=== PATIENT | male | born 1970 | race Caucasian/White ===

== ENCOUNTER 2017-06-03 11:54 | Emergency (ER) | payer SELFPAY ==
[~2017-06-03] VITALS: Ht 182.9 cm; Wt 130.0 kg
[2017-06-03 12:12] VITALS: BP 143/67; PULSE 68; RESP 19; TEMP 98.4; O2SAT 98
--- NOTE | 2017-06-03 13:39 | RADRPT ---
EXAM DATE/TIME: 06/03/2017 13:36 [place] COMPARISON: No previous studies available for comparison. INDICATIONS : Left leg pain. MEDICAL HISTORY : None. SURGICAL HISTORY : None. ENCOUNTER: Initial ACUITY: 1 day PAIN SCORE: 7/10 LOCATION: Left leg. TECHNIQUE: Venous ultrasound of the leg was performed from the inguinal ligament to the proximal calf. Real-georgina e, color Doppler and spectral tracing, compression and augmentation techniques were used. FINDINGS: There is normal compressibility of the deep venous system from the inguinal region to the proximal ca lf. No echogenic clot is seen in the lumen of the common femoral, femoral, popliteal, and posterior tibial veins. There is a normal response of the venous system to proximal and distal augmentation an d respiration. There is some thrombosis in a few varicosities in the subcutaneous soft tissues of the left proximal calf. CONCLUSION: 1. No evidence of DVT. 2. There are some varicosities in the subcutaneous soft tissues of the left proximal calf with thromb osis. Mitch Montiel MD on June 03, 2017 at 13:36 Board Certified Radiologist. This report was verified electronically.
[2017-06-03] MEDS ORDERED: CEPH-460 PO (14:54)
[2017-06-03] MEDS ORDERED: IBUP1TAB7 PO (14:54)
--- NOTE | 2017-06-03 14:56 | PD ---
Physical Exam Date Seen by Provider: Jun 03, 2017 Narrative This patient presents complaining with left calf tenderness. Onset has been several days ago. Data Data Last Documented VS Vital Signs Date Time Temp Pulse Resp B/P (MAP) Pulse Ox O2 Delivery O2 Flow Rate FiO2 06/03/17 12:12 98.4 68 19 143/67 (92) 98 Orders Orders Us Leg Venous Doppler (06/03/17 ) MDM Supervised Visit with CHELITA: Yes Narrative Course I, Dr. Plummer, have reviewed the advance practice practitioner's documentation and am in agreement, met with the patient face to face, made the diagnosis, and the medical decision making was done by me. *My assessment and Findings: Patient ambulates to the room. He does not appear to be in any distress. Last Impressions Lower Extremity Ultrasound 06/03/17 0000 Signed Impressions: Service Date/Time: May 13:36 - CONCLUSION: 1. No evidence of DVT. 2. There are some varicosities in the subcutaneous soft tissues of the left proximal calf with thrombosis. Mitch Montiel MD Please see Edmund Kearney PA-C's note for results of laboratory and radiographic evaluation, ED course, final diagnosis and disposition Scripts Cephalexin (Keflex) 500 Mg Capsule 500 MG PO Q8H for Infection for 7 Days, #21 CAP 0 Refills Prov: Shaista Plummer MD 06/03/17 Ibuprofen (Ibuprofen) 800 Mg Tab 800 MG PO Q8H Y for Pain/Inflammation, #60 TAB 0 Refills Prov: Shaista Plummer MD 06/03/17 Shaista Plummer MD Jun 03, 2017 14:56
--- NOTE | 2017-06-03 14:59 | PD ---
HPI Chief Complaint: Pain: Acute or Chronic Time Seen by Provider: 14:51 Travel History International Travel<30 days: No Contact w/Intl Traveler<30days: No Traveled to known affect area: No History of Present Illness HPI 46 year old male presents emergency department with several day history of worsening left upper medial calf tenderness, swelling, and erythema. Patient is concerned about possible DVT. 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 Patient has known fever, chills, or other symptoms. Current pain is 8 out of 10. He is able to ambulate. Patient denies injury to the area. He has history of varicose veins in the past. Ultrasound of the left leg was ordered in triage. Patient denies taking aspirin daily. He is allergic to penicillin PFSH Social History Alcohol Use: Yes Tobacco Use: No Substance Use: No Allergies-Medications (Allergen,Severity, Reaction): Coded Allergies: penicillin G (Verified Allergy, Severe, RASH , 06/03/17) Reported Meds & Prescriptions Reported Meds & Active Scripts Active Keflex (Cephalexin) 500 Mg Capsule 500 Mg PO Q8H 7 Days Ibuprofen 800 Mg Tab 800 Mg PO Q8H PRN Review of Systems Except as stated in HPI: all other systems reviewed are Neg General / Constitutional: No: Fever Eyes: No: Visual changes HENT: No: Headaches Cardiovascular: No: Chest Pain or Discomfort Respiratory: No: Shortness of Breath Gastrointestinal: No: Abdominal Pain Genitourinary: No: Dysuria Musculoskeletal: Positive: Myalgias, Edema, Pain (See history of present illness.) Skin: No Rash Neurologic: No: Weakness Psychiatric: No: Depression Endocrine: No: Polydipsia Hematologic/Lymphatic: No: Easy Bruising Physical Exam Narrative GENERAL: Patient appears in mild to moderate distress. He is able to ambulate to the room. SKIN: Warm and dry. Normal color. Normal turgor. Patient has obvious superficial varicosities to both lower calves. Patient has an erythematous tender area to the left medial upper calf consistent with phlebitis. No signs of deep abscess or lymphangitis. HEAD: Atraumatic. Normocephalic. EYES: Pupils equal and round. No scleral icterus. No injection or drainage. ENT: No nasal bleeding or discharge. Mucous membranes pink and moist. Pharynx is clear. Airways patent NECK: Trachea midline. Supple and nontender. CARDIOVASCULAR: Regular rate and rhythm. RESPIRATORY: No accessory muscle use. Clear to auscultation. Breath sounds equal bilaterally. MUSCULOSKELETAL: Extremities without clubbing, cyanosis, or edema. No obvious deformities. Range of motion is full. Neurovascular exam is normal. NEUROLOGICAL: Awake and alert. No obvious cranial nerve deficits. Motor grossly within normal limits. Five out of 5 muscle strength in the arms and legs. Normal speech. PSYCHIATRIC: Appropriate mood and affect; insight and judgment normal. Data Data Last Documented VS Vital Signs Date Time Temp Pulse Resp B/P (MAP) Pulse Ox O2 Delivery O2 Flow Rate FiO2 06/03/17 14:55 18 06/03/17 12:12 98.4 68 143/67 (92) 98 Orders Orders Us Leg Venous Doppler (06/03/17 ) [facility] Medical Decision Making Medical Screen Exam Complete: Yes Emergency Medical Condition: Yes Differential Diagnosis Left leg pain. DVT. Phlebitis. Varicose veins. Narrative Course DVT study is negative. Patient will be treated with ibuprofen 800 mg 3 times daily with food. Recommend patient take aspirin 81 mg daily. Patient is to use warm compresses, elevation, and compression stockings as discussed. Patient is placed on Keflex 500 mg 3 times daily #21. Work note for 2 days is given Patient to follow-up if symptoms worsen. Diagnosis Primary Impression: Phlebitis and thrombophlebitis Referrals: [facility] Patient Instructions: General Instructions, Superficial Thrombophlebitis (ED) Departure Forms: Work Release Enter return to work date: Jun 06, 2017 Additional Instructions: DVT study is negative. Patient will be treated with ibuprofen 800 mg 3 times daily with food. Recommend patient take aspirin 81 mg daily. Patient is to use warm compresses, elevation, and compression stockings as discussed. Patient is placed on Keflex 500 mg 3 times daily #21. Work note for 2 days is given Patient to follow-up if symptoms worsen. Med/Other Pt SpecificInfo: Prescription(s) given Scripts Cephalexin (Keflex) 500 Mg Capsule 500 MG PO Q8H for Infection for 7 Days, #21 CAP 0 Refills Prov: Shaista Plummer MD 06/03/17 Ibuprofen (Ibuprofen) 800 Mg Tab 800 MG PO Q8H Y for Pain/Inflammation, #60 TAB 0 Refills Prov: Shaista Plummer MD 06/03/17 Disposition: 01 DISCHARGE HOME Condition: Stable Brayden Kearney Jun 03, 2017 14:59
== END 2017-06-03 15:18 | disposition home or self-care (01) ==
LOC: NEPD 11:54
DX: I80.3 Phlebitis and thrombophlebitis of lower extremities, unspecified (principal); R50.9 Fever, unspecified
CPT/HCPCS: 93971; 99284